=== PATIENT | female | born 1970 ===

== ENCOUNTER 2018-08-24 11:14 | Emergency (ER) | payer OTHER ==
[~2018-08-24] VITALS: Ht 157.5 cm; Wt 76.2 kg
[~2018-08-24 11:14] MED LIST: AGM875T PO; HYDR-707 PO; LORA1TAB PO; TRAM50TA2 PO
--- OUTSIDE RECORDS SUMMARY | 2018-08-24 11:19 | XMS REPORT | Continuity of Care Document ---
Author Author [facility] Organization [facility] Address Unknown Phone Unavailable Care Team Providers Care Dried Fruit Washer Name Role Phone SUDHIR NATARAJAN MD PP Insurance Providers Payer Name Policy Number Subscriber Name Relationship Self Pay Madhavi Ulrich Self / Same As Patient Advance Directives Directive Response Recorded Date Advance Directives N 06/22/12 10:43am Problems No Known Problems or Medical conditions. Social History History Response Recorded Date/Time Alcohol Use Denies Use 06/22/12 10:43am Recreational Drug Use N 06/22/12 10:43am Allergies, Adverse Reactions, Alerts Allergen Type Severity Reaction Last Updated NKANo Known Allergies Allergy Unknown 02/16/06 Medications Medication Dose Units Route Sig Qty Days Amoxicillin/Clavulanate Potassium (Augmentin 875-125 Tablet) 1 Tab PO BID Acetaminophen/Hydrocodone Bitart (Lortab 5-500 Tablet) 1 Each PO Q6HR PRN Lorazepam (Lorazepam 1 Mg) 1 Each PO BID PRN Response Recorded Date/Time Status not known Unknown Results No Known Relevant Diagnostic Tests, Laboratory Data and/or Discharge Summary. Procedures Procedure Code Date TREATMENT OF MISCARRIAGE 61551 02/16/06 MANUAL ASSIST DELIV NEC 73.59 09/28/11 Encounters Encounter Location Date/Time Departed Emergency Room [facility] 06/22/12 10:38am Discharged Inpatient [facility] 09/26/11 11:01am
--- OUTSIDE RECORDS SUMMARY | 2018-08-24 11:19 | XMS REPORT | Continuity of Care Document ---
Author Author [facility] Organization [facility] Address Unknown Phone Unavailable Care Team Providers Care Manager [employer]mer Funeral Director Name Role Phone SUDHIR NATARAJAN MD PP [...] Recorded Date/Time Status not known Unknown Results Test Date Result Interp. Ref. Range Alanine Aminotransferase (ALT/SGPT) April 29, 2008 5:13pm 39 U/L N 30-65 Albumin April 29, 2008 5:13pm 4.0 G/DL N 3.4-5.0 Alkaline Phosphatase April 29, 2008 5:13pm 50 U/L N 50-136 Aspartate Amino Transf (AST/SGOT) April 29, 2008 5:13pm 27 U/L N 15-37 BUN/Creatinine Ratio June 22, 2012 10:58am 9 - Basophils # (Auto) June 22, 2012 10:58am 0.0 10^3/uL N 0.0-0.1 Basophils (%) (Auto) June 22, 2012 10:58am 0 % N 0-10 Blood Urea Nitrogen June 22, 2012 10:58am 6 MG/DL L 7-18 C-Reactive Protein September 27, 2011 8:09pm 9.0 MG/DL H 0.2-0.9 Calcium Level June 22, 2012 10:58am 8.4 MG/DL L 8.5-10.1 Carbon Dioxide Level June 22, 2012 10:58am 23 MMOL/L N 21-32 Chlamydia DNA Probe September 21, 2006 10:35pm Neg - Chlamydia/GC DNA Probe Source September 21, 2006 10:35pm Cervix - Chloride Level June 22, 2012 10:58am 104 MMOL/L N 101-110 Creatinine June 22, 2012 10:58am 0.7 MG/DL N 0.6-1.3 Eosinophils # (Auto) June 22, 2012 10:58am 0.2 10^3/uL N 0.0-0.3 Eosinophils (%) (Auto) June 22, 2012 10:58am 3 % N 0-10 Glucose Level June 22, 2012 10:58am 89 MG/DL N 74-106 Hematocrit June 22, 2012 10:58am 40 % N 35-52 Hemoglobin June 22, 2012 10:58am 13.8 G/DL N 11.5-16.0 Hemoglobin A1c April 29, 2008 5:13pm 5.4 % - Human Chorionic Gonadotropin, Quant June 22, 2012 10:58am 06395 MIU/ML H -6 Lipase April 29, 2008 5:13pm 248 U/L N 114-286 Lymphocytes # (Auto) June 22, 2012 10:58am 1.5 X 10^3 N 1.0-4.0 Lymphocytes (%) (Auto) June 22, 2012 10:58am 24 % N 12-44 Magnesium Level September 27, 2011 8:48am 6.1 MG/DL PH 1.8-2.4 Mean Corpuscular Hemoglobin June 22, 2012 10:58am 30 PG N 25-34 Mean Corpuscular Hemoglobin Concent June 22, 2012 10:58am 34 G/DL N 32-36 Mean Corpuscular Volume June 22, 2012 10:58am 87 FL N 80-99 Mean Platelet Volume June 22, 2012 10:58am 9.9 FL N 7.4-10.4 Monocytes # (Auto) June 22, 2012 10:58am 0.3 X 10^3 N 0.0-1.0 Monocytes (%) (Auto) June 22, 2012 10:58am 5 % N 0-12 Neisseria gonorrhoeae DNA Probe September 21, 2006 10:35pm Neg - Neutrophils # (Auto) June 22, 2012 10:58am 4.4 X 10^3 N 1.8-7.8 Neutrophils (%) (Auto) June 22, 2012 10:58am 69 % N 42-75 Platelet Count June 22, 2012 10:58am 220 10^3/uL N 130-400 Potassium Level June 22, 2012 10:58am 3.7 MMOL/L N 3.6-5.0 Red Blood Count June 22, 2012 10:58am 4.62 10^6/uL N 4.35-5.85 Red Cell Distribution Width June 22, 2012 10:58am 13.5 % N 10.0-14.5 Serum Test, Qualitative May 27, 2011 10:27pm POSITIVE - Sodium Level June 22, 2012 10:58am 139 MMOL/L N 135-145 Total Bilirubin April 29, 2008 5:13pm 0.2 MG/DL N 0.0-1.0 Total Protein April 29, 2008 5:13pm 7.4 G/DL N 6.4-8.2 Urine Bacteria September 27, 2011 8:00pm NEGATIVE - Urine Bilirubin September 27, 2011 8:00pm NEGATIVE - Urine Casts September 27, 2011 8:00pm NONE - Urine Clarity September 27, 2011 8:00pm CLEAR - Urine Color September 27, 2011 8:00pm YELLOW - Urine Crystals September 27, 2011 8:00pm NONE - Urine Culture Indicated September 27, 2011 8:00pm NO - Urine Glucose (UA) September 27, 2011 8:00pm TRACE H - Urine Ketones September 27, 2011 8:00pm NEGATIVE - Urine Leukocyte Esterase September 27, 2011 8:00pm TRACE H - Urine Mucus September 27, 2011 8:00pm SMALL H - Urine Nitrate September 21, 2006 10:02pm Negative - Urine Nitrite September 27, 2011 8:00pm NEGATIVE - Urine Test April 29, 2008 5:13pm NEGATIVE - Urine Protein September 27, 2011 8:00pm NEGATIVE - Urine RBC September 27, 2011 8:00pm 10-25 /HPF H - Urine Specific [place] September 27, 2011 8:00pm 1.015 L - Urine Squamous Epithelial Cells September 26, 2011 1:45pm 2-5 - Urine Urobilinogen September 27, 2011 8:00pm NORMAL MG/DL - Urine WBC September 27, 2011 8:00pm 2-5 /HPF - Urine pH September 27, 2011 8:00pm 8.0 - White Blood Count June 22, 2012 10:58am 6.5 10^3/uL N 4.3-11.0 Lab Scanned Report June 22, 2012 10:38am LAB Reports [id number] - Estimat Glomerular Filtration Rate June 22, 2012 10:58am > 60 - Urine RBC (Auto) September 27, 2011 8:00pm 4+ H - Procedures Procedure Code Date TREATMENT OF MISCARRIAGE 26552 02/16/06 MANUAL ASSIST DELIV NEC 73.59 09/28/11 Clostridium difficile Toxin A&B (M) 04/30/08 Genital Culture 09/21/06 Gram Stain 09/28/11 Encounters Encounter Location Date/Time Departed Emergency Room [facility] 06/22/12 10:38am Discharged Inpatient [facility] 09/26/11 11:01am
--- OUTSIDE RECORDS SUMMARY | 2018-08-24 11:20 | XMS REPORT | Continuity of Care Document ---
Author Organization Unknown Address Unknown Allergies There is no data. Medications There is no data. Problems Date Dx Coded Attending Type Code Diagnosis Diagnosed By 11/11/2008 564.00 Constipation 11/11/2008 788.1 Dysuria 11/11/2008 COURT BRYANT DO 564.00 Constipation 11/11/2008 COURT BRYANT DO 788.1 Dysuria 11/11/2008 LEV LIRA MD 564.00 Constipation 11/11/2008 LEV LIRA MD 788.1 Dysuria 11/25/2008 041.86 H. Pylori Infection 11/25/2008 296.90 Mo Mood Dis Nos 11/25/2008 COURT BRYANT DO 041.86 H. Pylori Infection 11/25/2008 COURT BRYANT DO 296.90 Mo Mood Dis Nos 11/25/2008 LEV LIRA MD 041.86 H. Pylori Infection 11/25/2008 LEV LIRA MD 296.90 Mo Mood Dis Nos 12/09/2008 840.9 Sprain/strain Shoulder/arm 12/09/2008 847.0 Sprain/strain Neck 12/09/2008 847.9 Sprain/strain Back Unspec 12/09/2008 COURT BRYANT DO 840.9 Sprain/strain Shoulder/arm 12/09/2008 COURT BRYANT DO 847.0 Sprain/strain Neck 12/09/2008 COURT BRYANT DO 847.9 Sprain/strain Back Unspec 12/09/2008 LEV LIRA MD 840.9 Sprain/strain Shoulder/arm 12/09/2008 LEV LIRA MD 847.0 Sprain/strain Neck 12/09/2008 LEV LIRA MD 847.9 Sprain/strain Back Unspec 02/23/2009 462 Pharyngitis Acute 02/23/2009 COURT BRYANT DO 462 Pharyngitis Acute 02/23/2009 LEV LIRA MD 462 Pharyngitis Acute 12/07/2009 300.00 ANXIETY UNSPEC 12/07/2009 616.10 Vaginitis And Vulvovaginitis Unspecified 12/07/2009 780.50 SLEEP DISTURBANCE, UNSPECIFIED 12/07/2009 V72.31 Tray Line Supervisor Exam, Routine 12/07/2009 COURT BRYANT DO 300.00 ANXIETY UNSPEC 12/07/2009 COURT BRYANT DO 616.10 Vaginitis And Vulvovaginitis Unspecified 12/07/2009 COURT BRYANT DO 780.50 SLEEP DISTURBANCE, UNSPECIFIED 12/07/2009 COURT BRYANT DO V72.31 Tray Line Supervisor Exam, Routine 12/07/2009 LEV LIRA MD 300.00 ANXIETY UNSPEC 12/07/2009 LEV LIRA MD 616.10 Vaginitis And Vulvovaginitis Unspecified 12/07/2009 LEV LIRA MD 780.50 SLEEP DISTURBANCE, UNSPECIFIED 12/07/2009 LEV LIRA MD V72.31 Tray Line Supervisor Exam, Routine 02/23/2010 788.39 STRESS INCONTINENCE 02/23/2010 COURT BRYANT DO 788.39 STRESS INCONTINENCE 02/23/2010 LEV LIRA MD 788.39 STRESS INCONTINENCE 04/27/2011 112.1 Candidiasis Of Vulva And Vagina 04/27/2011 COURT BRYANT DO 112.1 Candidiasis Of Vulva And Vagina 04/27/2011 LEV LIRA MD 112.1 Candidiasis Of Vulva And Vagina 05/29/2011 640.00 Threatened 05/29/2011 COURT BRYANT DO 640.00 Threatened 05/29/2011 LEV LIRA MD 640.00 Threatened 06/28/2011 654.20 PREVIOUS 06/28/2011 V23.41 , High Risk W/ Hx Of Pre-term Labor 06/28/2011 V23.82 Supervision Of High-risk With Elderly Multigravida 06/28/2011 COURT BRYANT DO 654.20 PREVIOUS 06/28/2011 COURT BRYANT DO V23.41 , High Risk W/ Hx Of Pre-term Labor 06/28/2011 COURT BRYANT DO V23.82 Supervision Of High-risk With Elderly Multigravida 06/28/2011 LEV LIRA MD 654.20 PREVIOUS 06/28/2011 LEV LIRA MD V23.41 , High Risk W/ Hx Of Pre-term Labor 06/28/2011 LEV LIRA MD V23.82 Supervision Of High-risk With Elderly Multigravida 07/12/2011 625.9 Pelvic Pain 07/12/2011 V76.2 Cervical Cancer Screening (pap Smear) 07/12/2011 COURT BRYANT DO 625.9 Pelvic Pain 07/12/2011 COURT BRYANT DO V76.2 Cervical Cancer Screening (pap Smear) 07/12/2011 LEV LIRA MD 625.9 Pelvic Pain 07/12/2011 LEV LIRA MD V76.2 Cervical Cancer Screening (pap Smear) 09/26/2011 622.5 INCOMPETENCE OF CERVIX 09/26/2011 COURT BRYANT DO 622.5 INCOMPETENCE OF CERVIX 09/26/2011 LEV LIRA MD 622.5 INCOMPETENCE OF CERVIX 10/02/2011 676.20 Engorgement Of Breasts Associated With Childbirth Unspecified As To Episode Of Care 10/02/2011 COURT BRYANT DO 676.20 Engorgement Of Breasts Associated With Childbirth Unspecified As To Episode Of Care 10/02/2011 LEV LIRA MD 676.20 Engorgement Of Breasts Associated With Childbirth Unspecified As To Episode Of Care 10/05/2011 648.40 DEPRESSION 10/05/2011 COURT BRYANT DO 648.40 DEPRESSION 10/05/2011 LEV LIRA MD 648.40 DEPRESSION 10/19/2011 V25.01 CONTRACEPTION - ORAL CONTRACEPTION 10/19/2011 COURT BRYANT DO V25.01 CONTRACEPTION - ORAL CONTRACEPTION 10/19/2011 LEV LIRA MD V25.01 CONTRACEPTION - ORAL CONTRACEPTION 10/29/2012 COURT BRYANT DO 536.8 DYSPEPSIA AND OTHER SPECIFIED DISORDERS OF FUNCTION OF STOMACH 10/29/2012 COURT BRYANT DO 789.00 ABDOMINAL PAIN UNSPECIFIED SITE 10/29/2012 LEV LIRA MD 536.8 DYSPEPSIA AND OTHER SPECIFIED DISORDERS OF FUNCTION OF STOMACH 10/29/2012 LEV LIRA MD 789.00 ABDOMINAL PAIN UNSPECIFIED SITE 12/10/2012 LEV LIRA MD 455.6 HEMORRHOIDS NOS Procedures Code [place] [address] CULTURE URINE 10/29/2012 60322 UA W/ CULTURE IF INDICATED 10/29/2012 Results There is no data. Encounters ACCT No. Visit Date/Time Discharge Status Pt. Type Provider Facility Loc./Unit Complaint [id number] 12/10/2012 17:51:00 12/10/2012 23:59:59 CLS Outpatient LEV LIRA MD [id number] 10/29/2012 14:28:00 10/29/2012 23:59:[address] BRYANT DO [id number] 09/09/2012 10:39:00 Document Registration [id number] 11/03/2012 20:29:00 11/03/2012 22:30:00 DIS Emergency [id number] 06/20/2012 11:11:00 09/18/2012 00:01:00 DIS Outpatient [id number] 06/22/2012 10:38:00 06/22/2012 12:04:00 DIS Emergency [id number] 06/19/2012 13:05:00 06/19/2012 23:59:59 CLS Outpatient
--- OUTSIDE RECORDS SUMMARY | 2018-08-24 11:20 | XMS REPORT | Continuity of Care Document ---
Author Author [facility] Organization [facility] Address Unknown Phone Unavailable Care Team Providers Care Apple Sorter Name Role Phone SUDHIR NATARAJAN MD PP Insurance Providers Payer Name Policy Number Subscriber Name Relationship Self Pay Madhavi Ulrich Self / Same As Patient Advance Directives Directive Response Recorded Date Advance Directives N 11/03/12 9:38pm Organ Donor N 11/03/12 9:38pm Problems No Known Problems or Medical conditions. Social History History Response Recorded Date/Time Alcohol Use Denies Use 11/03/12 9:38pm Recreational Drug Use N 11/03/12 9:38pm Recent Foreign Travel N 11/03/12 9:38pm Recent Infectious Disease Exposure N 11/03/12 9:38pm Hospitalization with Isolation Denies 11/03/12 9:38pm Sexually Transmitted Disease N 11/03/12 9:38pm Allergies, Adverse Reactions, Alerts Allergen Type Severity Reaction Last Updated NKANo Known Allergies Allergy Unknown 02/16/06 Medications Medication Dose Units Route Sig Qty Days Tramadol Hcl 50 Mg PO Q4H PRN 10 Amoxicillin/Clavulanate Potassium (Augmentin 875-125 Tablet) 1 Tab PO BID Acetaminophen/Hydrocodone Bitart (Lortab 5-500 Tablet) 1 Each PO Q6HR PRN Lorazepam (Lorazepam 1 Mg) 1 Each PO BID PRN Immunizations Name Given Type Date of Pneumonia Vaccine 10/31/11 H Date of Influenza Vaccine 11/03/11 H Response Recorded Date/Time Status not known Unknown Results No Known Relevant Diagnostic Tests, Laboratory Data and/or Discharge Summary. Procedures Procedure Code Date TREATMENT OF MISCARRIAGE 39051 02/16/06 MANUAL ASSIST DELIV NEC 73.59 09/28/11 Encounters Encounter Location Date/Time Departed Emergency Room [facility] 09/29/13 8:29pm Discharged Inpatient [facility] 09/26/11 11:01am
--- NOTE | 2018-08-24 11:40 | NUR ---
pt here with husbandper . pt alert gcs 15. pt little spanish and interpreting. relates " every poop bleeding". been going on x 3-4 weeks. lmp july 20. pt points to and c/o pelvic area abd pain. also c/o rectal pain. rating 7 currently. associates with nausea w/o vomiting. no acute bleeding thru jeans. also says " she thinks she has heemmeroids". denies dyspnea and no acute sighns of dyspnea noted. lungs cta bilaterally. abd pain with palpation rlq " little bit" but had facial grimace with palpation of pelvic area. done peter pt at 1148.
--- NOTE | 2018-08-24 12:35 | NUR ---
pt in a gown now and no acute bleeding thru gown or on sheets.
--- NOTE | 2018-08-24 13:10 | NUR ---
relates occult stool positive
--- NOTE | 2018-08-24 13:14 | NUR ---
ua hcg and ua to lab by another nurse. ua hcg is neg
--- NOTE | 2018-08-24 13:18 | ED Abdominal Pain ---
General Chief Complaint: Abdominal/GI Problems Stated Complaint: RECTAL BLEEDING Nursing Triage Note: rectal bleeding Sepsis Screen: No Definite Risk Source of Information: Patient Exam Limitations: Language Barrier History of Present Illness Date Seen by Provider: Aug 24, 2018 Time Seen by Provider: 12:56 Initial Comments Here with report of rectal bleeding intermittently for a couple of weeks. Started after hard stools. Notes that she has blood dripping into school with each bowel movement. Sometimes it's more pronounced than others. Also notes a little right lower quadrant abdominal pain and pain with urination. Denies diarrhea. Denies problems above the diaphragm. Has not had anything like this before. Does note that she has difficulties with stools often and states that she has to push hard sometimes. Timing/Duration: 1 Week, Changing Over Time, Getting Worse Severity/Quality: Mild, Aching, Other (rectal bleeding.) Location: RLQ, Other (rectal) Radiation: No Radiation Activities at Onset: None Associated Symptoms: No Back Pain, No Chest Pain, No Fever/Chills, No Shortness of Air, No Swelling/Mass in Abdomen, No Weakness Allergies and Home Medications Allergies Coded Allergies: NKANo Known Allergies (Verified Allergy, Unknown, 02/16/06) Home Medications Amoxicillin/Clavulanate K 1 Tab Tablet, 1 TAB PO BID, (Reported) Hydrocodone Bit/Acetaminophen 1 Each Tablet, 1 EACH PO Q6HR PRN, (Reported) Lorazepam 1 Mg Tablet, 1 EACH PO BID PRN, (Reported) Tramadol Hcl 50 Mg Tablet, 50 MG PO Q4H PRN Prescribed by: RUSSELL WALLS on 11/03/12 6165 Patient Home Medication List Home Medication List Reviewed: Yes Review of Systems Review of Systems Constitutional: see HPI; No chills, No fever Respiratory: No Symptoms Reported Cardiovascular: No Symptoms Reported Gastrointestinal: See HPI, Abdominal Pain, Constipated, Nausea, Rectal Bleeding; Denies Vomiting Genitourinary: No Symptoms Reported Musculoskeletal: no symptoms reported Skin: no symptoms reported All Other Systems Reviewed Negative Unless Noted: Yes Past Buhxdih-Mxzuyi-Shyaln Hx Past Med/Social Hx: Reviewed Nursing Past Med/Soc Hx Patient Social History Alcohol Use: Denies Use Recreational Drug Use: No Smoking Status: Never a Smoker Recent Foreign Travel: No Contact w/Someone Who Travel: No Recent Infectious Disease Expo: No Physical Abuse: No Sexual Abuse: No Immunizations Up To Date Tetanus Booster (TDap): Less than 5yrs Date of Pneumonia Vaccine: Oct 31, 2011 Date of Influenza Vaccine: Nov 03, 2011 Past Medical History Surgeries: No (c/s) Respiratory: No Cardiac: No Neurological: No Reproductive Disorders: No Female Reproductive Disorders: Denies Sexually Transmitted Disease: No Gastrointestinal: No Musculoskeletal: No Endocrine: No Cancer: No Psychosocial: No Integumentary: No Blood Disorders: No Family Medical History Reviewed Nursing Family Hx No Pertinent Family Hx Physical Exam Vital Signs Vital Signs - First Documented 08/24/18 11:40 Temp 98.2 Pulse 84 Resp 16 B/P (MAP) 107/67 (80) Pulse Ox 97 O2 Delivery Room Air Capillary Refill : Less Than 3 Seconds Height/Weight/BMI Height: 5'2.00" Weight: 168lbs. oz. 76.096504qv; BMI Method:Stated General Appearance: WD/WN, no apparent distress HEENT: PERRL/EOMI, pharynx normal Neck: full range of motion, supple Respiratory: lungs clear, normal breath sounds Cardiovascular: regular rate, rhythm, no murmur Gastrointestinal: soft, tenderness (right lower quadrant and right flank) Rectal: heme positive stool, hemorrhoids; No mass; tenderness (mild) Extremities: non-tender, normal inspection Back: normal inspection, no CVA tenderness, no vertebral tenderness Neurologic/Psychiatric: alert, oriented x 3 Skin: normal color, warm/dry Progress/Results/Core Measures Results/Orders Lab Results Laboratory Tests Test 08/24/18 13:17 08/24/18 13:19 Range/Units Urine Color YELLOW Urine Clarity CLEAR Urine pH 8 5-9 Urine Specific [place] 1.010 L 1.016-1.022 Urine Protein NEGATIVE NEGATIVE Urine Glucose (UA) NEGATIVE NEGATIVE Urine Ketones NEGATIVE NEGATIVE Urine Nitrite NEGATIVE NEGATIVE Urine Bilirubin NEGATIVE NEGATIVE Urine Urobilinogen NORMAL NORMAL MG/DL Urine Leukocyte Esterase NEGATIVE NEGATIVE Urine RBC (Auto) NEGATIVE NEGATIVE Urine RBC NONE /HPF Urine WBC NONE /HPF Urine Squamous Epithelial Cells RARE /HPF Urine Crystals NONE /LPF Urine Bacteria TRACE /HPF Urine Casts NONE /LPF Urine Mucus NEGATIVE /LPF Urine Culture Indicated NO White Blood Count 5.6 4.3-11.0 10^3/uL Red Blood Count 3.09 L 4.35-5.85 10^6/uL Hemoglobin 8.0 L 11.5-16.0 G/DL Hematocrit 26 L 35-52 % Mean Corpuscular Volume 84 80-99 FL Mean Corpuscular Hemoglobin 26 25-34 PG Mean Corpuscular Hemoglobin Concent 31 L 32-36 G/DL Red Cell Distribution Width 13.4 10.0-14.5 % Platelet Count 334 130-400 10^3/uL Mean Platelet Volume 9.1 7.4-10.4 FL Neutrophils (%) (Auto) 57 42-75 % Lymphocytes (%) (Auto) 32 12-44 % Monocytes (%) (Auto) 6 0-12 % Eosinophils (%) (Auto) 4 0-10 % Basophils (%) (Auto) 0 0-10 % Neutrophils # (Auto) 3.2 1.8-7.8 X 10^3 Lymphocytes # (Auto) 1.8 1.0-4.0 X 10^3 Monocytes # (Auto) 0.4 0.0-1.0 X 10^3 Eosinophils # (Auto) 0.2 0.0-0.3 10^3/uL Basophils # (Auto) 0.0 0.0-0.1 10^3/uL Sodium Level 140 135-145 MMOL/L Potassium Level 3.5 L 3.6-5.0 MMOL/L Chloride Level 109 H 98-107 MMOL/L Carbon Dioxide Level 22 21-32 MMOL/L Anion Gap 9 5-14 MMOL/L Blood Urea Nitrogen 7 7-18 MG/DL Creatinine 0.74 0.60-1.30 MG/DL Estimat Glomerular Filtration Rate > 60 BUN/Creatinine Ratio 9 Glucose Level 84 70-105 MG/DL Calcium Level 9.0 8.5-10.1 MG/DL Corrected Calcium 8.8 8.5-10.1 MG/DL Total Bilirubin 0.2 0.1-1.0 MG/DL Aspartate Amino Transf (AST/SGOT) 20 5-34 U/L Alanine Aminotransferase (ALT/SGPT) 17 0-55 U/L Alkaline Phosphatase 53 40-136 U/L C-Reactive Protein High Sensitivity 0.72 H 0.00-0.50 MG/DL Total Protein 7.1 6.4-8.2 GM/DL Albumin 4.2 3.2-4.5 GM/DL My Orders Orders - JONAH GIFFORD MD Cbc With Automated Diff (08/24/18 12:53) Comprehensive Metabolic Panel (08/24/18 12:53) Hs C Reactive Protein (08/24/18 12:53) Ua Culture If Indicated (08/24/18 12:53) I-Stat Bedside Testing (08/24/18 12:53) Urine Bedside (08/24/18 13:15) Fecal Occult Bedside (08/24/18 13:15) Ct Abdomen/Pelvis W (08/24/18 13:34) Ed Iv/Invasive Line Start (08/24/18 13:34) Ns Iv 1000 Ml (Sodium Chloride 0.9%) (08/24/18 13:34) Iohexol Injection (Omnipaque 350 Mg/Ml 1 (08/24/18 13:45) Received Contrast (Hold Metformin- Contr (08/24/18 13:45) Sodium Chloride Flush (Catheter Flush Sy (08/24/18 13:45) Ns (Ivpb) (Sodium Chloride 0.9% Ivpb Bag (08/24/18 13:45) Medications Given in ED Current Medications Medications Dose Ordered Sig/Akin Route Start Time Stop Time Status Last Admin Dose Admin Iohexol 100 ml ONCE ONCE IV 08/24/18 13:45 08/24/18 13:46 DC 08/24/18 14:14 96 ML Sodium Chloride 10 ml NEEDED PRN IV 08/24/18 13:45 08/24/18 14:14 10 ML Sodium Chloride 100 ml ONCE ONCE IV 08/24/18 13:45 08/24/18 13:46 DC 08/24/18 14:14 80 ML Sodium Chloride 1,000 ml @ 0 mls/hr Q0M ONCE IV 08/24/18 13:34 08/24/18 13:35 DC 08/24/18 13:43 0 MLS/HR Vital Signs/I&O 08/24/18 08/24/18 11:40 13:47 Temp 98.2 98.0 Pulse 84 68 Resp 16 16 B/P (MAP) 107/67 (80) 118/53 (74) Pulse Ox 97 100 O2 Delivery Room Air Room Air Blood Pressure Mean: 80 Progress Progress Note : Progress Note Seen and evaluated. IV, labs, and UA with UCG ordered. Monitor patient. 1332: Patient's hemoglobin is 8 so we will go ahead and get a CT scan of the abdomen and pelvis to look for additional pathology. Normal saline 1 L bolus ordered for contrast. Monitor patient. CT complete. I did discuss the findings of the CT scan with the patient and family via behavior specialist line. I expressed the need for follow-up for this cystic structure of the uterus and my concerns that this could potentially be cancer. It looks cystic precancerous still in the differential. This was expressed as well. I also expressed my concern for follow-up with a surgeon for colonoscopy. I did discuss the case with Dr. Pineda and he will see her this week. Patient does need to call his office for appointment. This was expressed as well. All questions answered. Patient and family verbalize understanding and agreement with plan. Discharged home with return precautions. Diagnostic Imaging Diagonstic Imaging: CT Plain Films/CT/US/NM/MRI: abdomen, pelvis Comments NAME: [facility] REC#: [id number] PT STATUS: REG ER : 1970 PHYSICIAN: JONAH GIFFORD MD ADMIT DATE: 08/24/18/ER Signed Date of Exam: 08/24/18 CT ABDOMEN/PELVIS W PROCEDURE: CT abdomen and pelvis with contrast. TECHNIQUE: Multiple contiguous axial images were obtained through the abdomen and pelvis after administration of intravenous contrast. Auto Exposure Controls were utilized during the CT exam to meet ALARA standards for radiation dose reduction. INDICATION: Rectal bleeding, abdominal pain COMPARISON: 09/21/2006 FINDINGS: Lung bases are clear. The gallbladder, solid, organs, vascular structures and bowel are unremarkable. There is no free air, free fluid or bowel obstruction. Multiple cysts are seen involving the endocervix. There has been interval enlargement of the lower uterine segment and endocervix from the prior exam. The largest cyst measured is approximately 2.3 cm. Differential considerations are a large nabothian cyst, endocervical glandular hyperplasia or adenoma malignum of the cervix. ARTILLERY OR NAVAL GUNFIRE OBSERVER consultation recommended. Benign right adnexal cyst is present measuring approximately 4 cm and is likely an ovarian follicle. Distal ureters and urinary bladder are normal. The appendix is unremarkable. No hernia seen. The pelvic floor is normal. Osseous structures are age-appropriate. IMPRESSION: Enlargement of the endocervix with cystic change compared to the prior examination as described above. ARTILLERY OR [employer]AL GUNFI[employer] OBSERVER consultation recommended on a nonemergent basis number. No inflammatory process, free air, free fluid or bowel obstruction. No active GI hemorrhage identified on this series. Dictated by: Dictated on workstation # [id number] Dict: 08/24/18 1428 Trans: 08/24/18 1533 Interpreted by: MAGED HANNAH Electronically signed by: MAGED HANNAH 08/24/18 1533 Departure Impression Primary Impression: Cyst of uterus Additional Impressions: Ovarian cyst Qualified Codes: N83.201 - Unspecified ovarian cyst, right side Hemorrhoid Qualified Codes: K64.9 - Unspecified hemorrhoids Anemia Qualified Codes: D64.9 - Anemia, unspecified Disposition: 01 HOME, SELF-CARE Condition: Stable Departure-Patient Inst. Decision time for Depature: 15:49 Referrals: GISELE PINEDA MICHAEL S DO HIGGINBOTHAM, DENNIS G MD NO,LOCAL PHYSICIAN (PCP) Primary Care Physician NIGEL GREEN DO Patient Instructions: Acute Abdomen (Belly Pain), Adult (DC), Hemorrhoids (DC), Anemia of Chronic Disease Add. Discharge Instructions: All discharge instructions reviewed with patient and/or family. Voiced understanding. It is very important that you follow-up with the surgeon listed. Call Dr. Pineda's office on Sunday for appointment this week. You need to follow-up with a photographic equipment technician as well regarding the cysts of the uterus. You may call Dr. Jacobs, Dr. Green or Dr. Sampson for the uterine problem and ovarian cyst. You may use [id number] Preparation H for your hemorrhoid per package directions. Return for worse pain, fever, vomiting, weakness, persistent or increased bleeding from your bottom or vagina or other concerns as needed. Copy Copies To 1: GISELE PINEDA TIMOTHY D MD Aug 24, 2018 13:18
[2018-08-24 13:23] LABS: BILIRUBIN,URINE NEGATIVE (NEGATIVE); CLARITY,URINE CLEAR; COLOR,URINE YELLOW; GLUCOSE, URINE (UA) NEGATIVE (NEGATIVE); KETONES,URINE NEGATIVE (NEGATIVE); LEUKOCYTE ESTERASE ,URINE NEGATIVE (NEGATIVE); NITRITE,URINE NEGATIVE (NEGATIVE); PH,URINE 8 (5-9); PROTEIN,URINE NEGATIVE (NEGATIVE); UROBILINOGEN,URINE NORMAL (NORMAL)
[2018-08-24 13:25] LABS: BASOPHILS % (AUTO) 0 % (0-10); EOSINOPHILS # (AUTO) 0.2 10^3/uL (0.0-0.3); EOSINOPHILS % (AUTO) 4 % (0-10); HEMATOCRIT 26 % (35-52); LYMPHOCYTES # (AUTO) 1.8 X 10^3 (1.0-4.0); LYMPHOCYTES % (AUTO) 32 % (12-44); MEAN CORPUSCULAR HEMOGLOBIN 26 PG (25-34); MEAN CORPUSCULAR HGB CONC 31 G/DL (32-36); MEAN CORPUSCULAR VOLUME 84 FL (80-99); MEAN PLATELET VOLUME 9.1 FL (7.4-10.4); MONOCYTES # (AUTO) 0.4 X 10^3 (0.0-1.0); MONOCYTES % (AUTO) 6 % (0-12); NEUTROPHILS # (AUTO) 3.2 X 10^3 (1.8-7.8); NEUTROPHILS % (AUTO) 57 % (42-75); PLATELET COUNT 334 10^3/uL (130-400); RED CELL DISTRIBUTION WIDTH 13.4 % (10.0-14.5); WHITE BLOOD COUNT 5.6 10^3/uL (4.3-11.0)
[2018-08-24 13:29] LABS: BACTERIA,URINE TRACE /HPF; SQUAMOUS EPITHELIAL CELL,UR RARE /HPF
[2018-08-24] MEDS ORDERED: NS IV 1000 ML 1,000 ML IV ONE (13:34)
[2018-08-24 13:42] LABS: ALANINE AMINOTRANSFERASE 17 U/L (0-55); ALBUMIN 4.2 GM/DL (3.2-4.5); ALKALINE PHOSPHATASE 53 U/L (40-136); BILIRUBIN,TOTAL 0.2 MG/DL (0.1-1.0); BUN/CREATININE RATIO 9; CARBON DIOXIDE 22 MMOL/L (21-32); CHLORIDE 109 MMOL/L (98-107); CREATININE SERUM 0.74 MG/DL (0.60-1.30); GFR ESTIMATED > 60; GLUCOSE 84 MG/DL (70-105); POTASSIUM 3.5 MMOL/L (3.6-5.0); SODIUM 140 MMOL/L (135-145); TOTAL PROTEIN 7.1 GM/DL (6.4-8.2)
[2018-08-24] MEDS ORDERED: NS 100 ML (IVPB) BAG IV ONE (13:45)
[2018-08-24] MEDS ORDERED: HOLD METFORMIN - RECEIVED CONTRAST 20 ML VIAL IV SCH (13:45)
[2018-08-24] MEDS ORDERED: IOHEXOL 350 MG/ML 100 ML (OMNIPAQUE 350) VIAL IV ONE (13:45)
[2018-08-24] MEDS ORDERED: CATHETER FLUSH 10 ML SYR IV PRN (13:45)
[2018-08-24 13:47] VITALS: BP 118/53
--- NOTE | 2018-08-24 13:47 | NUR ---
pt remains alert gcs 15. remains in the room. pt points to rlq abd for abd pain continues. denies nausea and no v/d noted in er visit thus far. no acute bleeding thru gown or on bedsheets noted. denies dyspnea and no acute sighns of dyspnea noted. pain rating 3-4.
--- NOTE | 2018-08-24 14:44 | Diagnostic Imaging Report ---
PROCEDURE: CT abdomen and pelvis with contrast. TECHNIQUE: Multiple contiguous axial images were obtained through the abdomen and pelvis after administration of intravenous contrast. Auto Exposure Controls were utilized during the CT exam to meet ALARA standards for radiation dose reduction. INDICATION: Rectal bleeding, abdominal pain COMPARISON: 09/21/2006 FINDINGS: Lung bases are clear. The gallbladder, solid, organs, vascular structures and bowel are unremarkable. There is no free air, free fluid or bowel obstruction. Multiple cysts are seen involving the endocervix. There has been interval enlargement of the lower uterine segment and endocervix from the prior exam. The largest cyst measured is approximately 2.3 cm. Differential considerations are a large nabothian cyst, endocervical glandular hyperplasia or adenoma malignum of the cervix. TEASEL GIG OPERATOR consultation recommended. Benign right adnexal cyst is present measuring approximately 4 cm and is likely an ovarian follicle. Distal ureters and urinary bladder are normal. The appendix is unremarkable. No hernia seen. The pelvic floor is normal. Osseous structures are age-appropriate. IMPRESSION: Enlargement of the endocervix with cystic change compared to the prior examination as described above. TEASEL GIG OPERATOR consultation recommended on a nonemergent basis number. No inflammatory process, free air, free fluid or bowel obstruction. No active GI hemorrhage identified on this series. Dictated by: Dictated on workstation # [id number]
--- NOTE | 2018-08-24 14:47 | NUR ---
pt remains alert gcs 15. remains in the room. no acute bleeding thru gown or on bed sheets. bolus is over 3/4 completed. bp machine is 98/50 ausc hr 64 reg ausc resp 12 normal recheck temp 97.7 p ox r/a is 100. pt with no v/d noted in er visit thus far.
--- NOTE | 2018-08-24 15:59 | NUR ---
BEEN IN ROOM SEING PT USING PHONE DIRECTOR OF BUSINESS SYSTEMS
[2018-08-24 16:47] VITALS: BP 124/76
--- NOTE | 2018-08-24 16:47 | NUR ---
D/C INSTRUCTIONS TO PT AND . TOLD TO READ ALL PAPERS. NO SCRIPTS GIVEN. PT LEFT AMBULATORY WITH . PT AND KNOWS F/U. I WENT OVER THE HANDTYPED BY DR MCMAHON ON THE CHART. IV D/CD BY ME PRIOR TO D/C. PT ALERT GCS 15 WITH NO ACUTE SIGHNS OF DYSPNEA AT D/C AND NO ACUTE BLEEDING NOTED AT D/C.
== END 2018-08-24 16:47 | disposition home or self-care (01) ==
LOC: EDUNIT# 11:14 → ER 11:16
DX: K64.9 Unspecified hemorrhoids (principal); N83.201 Unspecified ovarian cyst, right side; N85.8 Other specified noninflammatory disorders of uterus; D64.9 Anemia, unspecified
CPT/HCPCS: 36415; 74177; 80053; 81000; 84703; 85025; 86141; 96360

== ENCOUNTER → 2018-09-04 | Outpatient (CLI) | payer OTHER ==
--- NOTE | 2018-09-04 16:24 | Diagnostic Imaging Report ---
INDICATION: Abnormal uterine bleeding. TECHNIQUE: Pelvic sonography performed with transabdominal and transvaginal views. FINDINGS: The uterus measured 9.2 x 5.8 x 4.5 cm. There is a small calcification within the uterus measuring 7 x 4 x 5 mm. Endometrium measured approximately 5 mm in thickness. There are prominent nabothian cysts of the cervix, largest measured 2.8 cm. The right ovary contains a cyst measuring 5.1 x 2.8 x 3.7 cm. The right ovary measured 5.6 x 4.0 x 3.6 cm overall. There was color-flow to the right ovary. Left ovary was not visualized. IMPRESSION: Uterus is normal in size. Endometrium is borderline in thickness. There is a calcification in the endometrium as above which may represent a calcified polyp. Consider followup as clinically warranted. There are prominent nabothian cysts of the cervix, largest of which measured 2.8 cm. There is a 5.1 cm simple cyst in the right ovary. Left ovary was not visualized. Consider followup as clinically warranted. Dictated by: Dictated on workstation # [id number]
== END ==
LOC: RAD 14:48
PROVIDERS: ATTEND Obstetrics & Gynecology
DX: N85.8 Other specified noninflammatory disorders of uterus (principal); N83.291 Other ovarian cyst, right side; N93.9 Abnormal uterine and vaginal bleeding, unspecified; N88.8 Other specified noninflammatory disorders of cervix uteri
CPT/HCPCS: 76830; 76856

== ENCOUNTER → 2018-09-10 | Outpatient (CLI) | payer OTHER | LOC: PREOP 05:52 | PROVIDERS: ATTEND Surgery | DX: Z01.818 Encounter for other preprocedural examination (principal); K64.9 Unspecified hemorrhoids ==

== ENCOUNTER → 2019-02-14 | Outpatient (CLI) | payer OTHER ==
--- NOTE | 2019-02-14 11:20 | Diagnostic Imaging Report ---
PROCEDURE: US Non-ob pelvis comp/trans. TECHNIQUE: Multiple realtime grayscale images were obtained of the pelvis in various projections endovaginally. Transabdominal imaging was also performed. INDICATION: Right ovarian cyst. COMPARISON: Correlation is made with prior ultrasound from 09/04/2018. FINDINGS: Uterus is anteverted measuring 10.4 x 3.8 x 6.3 cm. Nabothian cysts previously described are again noted. Calcifications in the region of the endometrium are again noted. Endometrium is 6 mm in thickness. Right ovary measures 4.5 x 2.9 x 4.2 cm and the left ovary measures 2.8 x 1.3 x 1.9 cm. A right ovarian cyst previously described is again noted measuring 4.6 x 2.9 x 3.6 cm compared with 5.1 x 2.8 x 3.7 cm. Left ovary contains small follicles. No free fluid is seen. IMPRESSION: Overall, stable pelvic ultrasound when compared with exam from 09/04/2018. Right ovarian cyst is similar to perhaps minimally smaller when compared with examination from August. Dictated by: Dictated on workstation # [id number]
== END ==
LOC: RAD 09:56
PROVIDERS: ATTEND Obstetrics & Gynecology
DX: N83.201 Unspecified ovarian cyst, right side (principal)
CPT/HCPCS: 76830; 76856